=== PATIENT | female | born 1975 | race Caucasian/White ===

== ENCOUNTER → 2022-01-11 | Outpatient (CLI) | payer OTHER ==
--- NOTE | 2022-01-11 09:35 | KCIC ---
CT SCREENING FOR CORONARY ARTERY History: Reason: Hyperlipidemia, cardiovascular screening. / Spl. Instructions: / History: Maternal family hx. CAD. Technique: With retrospective electrocardiogram gating axial reconstructed noncontrast images of the chest at the level of the coronary arteries was performed. Images were post processed on workstation and calcium score calculated using the modified Agatston Janowitz protocol. Exposure: One or more of the following individualized dose reduction techniques were utilized for thi s examination: 1. Automated exposure control 2. Adjustment of the mA and/or kV according to patient size 3. Use of iterative reconstruction technique. Comparison: None Findings: Total coronary calcium score is 0. No plaque burden and low cardiovascular disease risk. Th is is based on the calcium score of 0 of the left main coronary artery, 0 of the left anterior descen ding artery, score of 0 of the left circumflex artery and score of 0 of the right coronary artery. Noncoronary findings: No significant incidental findings. IMPRESSION: 1. Low cardiovascular disease risk. Calcium score 0. Electronically signed by: Luis Acevedo DO (01/11/2022 9:32 AM) [facility]
== END ==
LOC: KCIC CT 08:21
PROVIDERS: ATTEND Family Medicine
DX: E78.5 Hyperlipidemia, unspecified (principal)
CPT/HCPCS: 75571